=== PATIENT | female | born 1975 | race Caucasian/White ===

== ENCOUNTER 2020-08-18 00:47 | Emergency (ER) | payer MEDICAID ==
[~2020-08-18] VITALS: Ht 149.9 cm; Wt 67.7 kg
--- NOTE | 2020-08-18 01:07 | NUR ---
Patient states if son Martin, daughter or calls they can be updated on patient plan of care and condition. She is unsure of her home medications, states "I take a water pill daily, one pill three times a day and two pills at night. I also have 3 inhalers"
--- NOTE | 2020-08-18 01:10 | NUR ---
Patient states she usually wears 2.5L of oxygen but hadn't been able to as "[place] was on the streets".
[2020-08-18] MEDS ORDERED: ipratropium/albuterol 3ml nebule NEB ONE (01:30)
[2020-08-18] MEDS ORDERED: hydrALAZINE 20mg/ml inj. IV ONE ×2 (01:30→02:35)
[2020-08-18] MEDS ORDERED: dexamethasone sod phosphate 10mg/ml inj IV STA (01:30)
[2020-08-18] MEDS ORDERED: DOXY100C43 PO (01:32)
[2020-08-18] MEDS ORDERED: PRED20TA PO (01:32)
[2020-08-18] MEDS ORDERED: ALBU8HFA PO (01:32)
--- NOTE | 2020-08-18 01:45 | NUR ---
RT at bedside
[2020-08-18 02:38] LABS: BASOPHILS # (AUTO) 0.1 X10'3 (0-0.2); BASOPHILS % (AUTO) 0.8 % (0-1); EOSINOPHILS # (AUTO) 0.3 X10'3 (0-0.9); EOSINOPHILS % (AUTO) 3.3 % (0-6); HEMATOCRIT 47.4 % (35.0-45.0); LYMPHOCYTES # (AUTO) 2.4 X10'3 (1.1-4.8); LYMPHOCYTES % (AUTO) 28.5 % (21-51); MEAN CORPUSCULAR HEMOGLOBIN 28.7 PG (27.0-31.0); MEAN CORPUSCULAR HGB CONC 33.7 g/dL (33.0-36.5); MEAN CORPUSCULAR VOLUME 85.3 FL (78-98); MEAN PLATELET VOLUME 7.4 FL (7.4-10.4); MONOCYTES # (AUTO) 0.7 X10'3 (0-0.9); MONOCYTES % (AUTO) 9.1 % (2-12); NEUTROPHILS # (AUTO) 4.8 X10'3 (1.8-7.7); NEUTROPHILS % (AUTO) 58.3 % (42-75); PLATELET COUNT 314 X10'3 (140-440); RED BLOOD COUNT 5.56 X10'6 (4.20-5.60); WHITE BLOOD COUNT 8.2 X10'3 (4.5-11.0)
[2020-08-18 02:52] LABS: ALBUMIN 3.2 G/DL (3.4-5.0); ALBUMIN/GLOBULIN RATIO 0.8 (1.1-1.5); ALKALINE PHOSPHATASE 126 IU/L (46-116); ANION GAP 8 (8-16); ASPARTATE AMINO TRANSFERASE 21 U/L (10-37); BILIRUBIN,TOTAL 0.3 MG/DL (0.1-1.0); BLOOD UREA NITROGEN 12 MG/DL (7-18); CHLORIDE 104 MMOL/L (99-107); CREATININE 0.86 MG/DL (0.40-0.90); GLUCOSE 94 MG/DL (70-104); POTASSIUM 4.1 MMOL/L (3.5-5.1); SODIUM 138 MMOL/L (135-145); TOTAL CARBON DIOXIDE 26.4 MMOL/L (24-32); TOTAL PROTEIN 7.3 G/DL (6.4-8.2); eGFR 71 ML/MIN
[2020-08-18 02:59] LABS: TROPONIN I < 0.04 NG/ML (0.0-0.05)
[2020-08-18 03:00] LABS: ALANINE AMINOTRANSFERASE 24 U/L (12-78)
[2020-08-18 03:10] VITALS: BP 148/75
== END 2020-08-18 03:20 | disposition home or self-care (01) ==
LOC: ER 00:50
DX: J44.1 Chronic obstructive pulmonary disease with (acute) exacerbation (principal); J20.9 Acute bronchitis, unspecified; I11.0 Hypertensive heart disease with heart failure; I50.9 Heart failure, unspecified; F17.210 Nicotine dependence, cigarettes, uncomplicated; Z79.1 Long term (current) use of non-steroidal anti-inflammatories (NSAID); Z79.899 Other long term (current) drug therapy
CPT/HCPCS: 36415; 71046; 80053; 83880; 84484; 85025; 93005; 94640; 96374; 96375; 96376; 99285; J0360; J1100; 94760

== ENCOUNTER 2021-08-17 23:42 | Emergency (ER) | payer MEDICAID ==
[~2021-08-17] VITALS: Ht 149.9 cm; Wt 72.7 kg
[2021-08-18 02:50] LABS: BASOPHILS # (AUTO) 0.1 X10'3 (0-0.2); BASOPHILS % (AUTO) 0.4 % (0-1); EOSINOPHILS # (AUTO) 0.6 X10'3 (0-0.9); EOSINOPHILS % (AUTO) 3.2 % (0-6); HEMATOCRIT 36.1 % (35.0-45.0); HEMOGLOBIN 12.2 g/dl (12.0-16.0); LYMPHOCYTES # (AUTO) 2.7 X10'3 (1.1-4.8); LYMPHOCYTES % (AUTO) 15.3 % (21-51); MEAN CORPUSCULAR HEMOGLOBIN 30.2 PG (27.0-31.0); MEAN CORPUSCULAR HGB CONC 33.9 g/dL (33.0-36.5); MEAN CORPUSCULAR VOLUME 89.1 FL (78-98); MEAN PLATELET VOLUME 7.3 FL (7.4-10.4); MONOCYTES # (AUTO) 1.2 X10'3 (0-0.9); MONOCYTES % (AUTO) 6.8 % (2-12); NEUTROPHILS # (AUTO) 13.3 X10'3 (1.8-7.7); NEUTROPHILS % (AUTO) 74.3 % (42-75); PLATELET COUNT 351 X10'3 (140-440); RED BLOOD COUNT 4.05 X10'6 (4.20-5.60); RED CELL DISTRIBUTION WIDTH 14.4 % (11.5-14.5); WHITE BLOOD COUNT 17.9 X10'3 (4.5-11.0)
[2021-08-18 03:05] LABS: ALANINE AMINOTRANSFERASE 50 U/L (12-78); ALBUMIN 3.1 G/DL (3.4-5.0); ALBUMIN/GLOBULIN RATIO 0.9 (1.1-1.5); ALKALINE PHOSPHATASE 80 IU/L (46-116); ANION GAP 2 (8-16); ASPARTATE AMINO TRANSFERASE 17 U/L (10-37); BILIRUBIN,TOTAL 0.3 MG/DL (0.1-1.0); BLOOD UREA NITROGEN 20 MG/DL (7-18); CALCIUM 8.8 MG/DL (8.5-10.1); CHLORIDE 103 MMOL/L (99-107); GLUCOSE 114 MG/DL (70-104); LIPASE 70 U/L (73-393); POTASSIUM 3.7 MMOL/L (3.5-5.1); SODIUM 137 MMOL/L (135-145); TOTAL CARBON DIOXIDE 31.7 MMOL/L (24-32); TOTAL PROTEIN 6.7 G/DL (6.4-8.2); eGFR 77 ML/MIN
[2021-08-18] MEDS ORDERED: normal saline 1000ML IV soln IVB ONE (06:40)
[2021-08-18 06:57] LABS: BASOPHILS % (AUTO) 0.2 % (0-1); EOSINOPHILS # (AUTO) 0.5 X10'3 (0-0.9); HEMATOCRIT 36.8 % (35.0-45.0); HEMOGLOBIN 12.1 g/dl (12.0-16.0); LYMPHOCYTES # (AUTO) 2.6 X10'3 (1.1-4.8); LYMPHOCYTES % (AUTO) 14.3 % (21-51); MEAN CORPUSCULAR HEMOGLOBIN 29.1 PG (27.0-31.0); MEAN CORPUSCULAR VOLUME 88.1 FL (78-98); MEAN PLATELET VOLUME 7.4 FL (7.4-10.4); MONOCYTES # (AUTO) 1.5 X10'3 (0-0.9); MONOCYTES % (AUTO) 8.2 % (2-12); NEUTROPHILS # (AUTO) 13.6 X10'3 (1.8-7.7); NEUTROPHILS % (AUTO) 74.3 % (42-75); PLATELET COUNT 378 X10'3 (140-440); RED BLOOD COUNT 4.17 X10'6 (4.20-5.60); RED CELL DISTRIBUTION WIDTH 13.9 % (11.5-14.5); WHITE BLOOD COUNT 18.3 X10'3 (4.5-11.0)
[2021-08-18 07:00] LABS: URINE HCG NEGATIVE (NEG)
[2021-08-18 07:03] LABS: CLARITY,URINE CLEAR (Clear); COLOR,URINE YELLOW (Yellow); GLUCOSE, URINE NEGATIVE (Neg); KETONES,URINE NEGATIVE (Neg); LEUKOCYTE ESTERASE ,URINE NEGATIVE (Neg); NITRITES, URINE NEGATIVE (Neg); OCCULT BLOOD,URINE MODERATE (Neg); PH,URINE 5.5 (4.8-8.0); PROTEIN,URINE NEGATIVE (Neg); UROBILINOGEN,URINE 0.2 E.U/dL (0.2-1.0)
[2021-08-18 07:08] LABS: UA COLLECTION TYPE CLN CATCH MIDSTREAM
[2021-08-18 07:09] LABS: BACTERIA,URINE NONE SEEN /HPF (Neg); RBC,URINE 0-2 /HPF (0-2); SQUAMOUS EPITHELIAL CELL,UR NONE SEEN /LPF (FEW); WBC,URINE 0-4 /HPF (0-4)
[2021-08-18] MEDS ORDERED: iohexol 300mg/ml 100ml inj. ONE (07:20)
[2021-08-18] MEDS ORDERED: bisacodyl 10mg suppository rectal RC STA (07:40)
--- NOTE | 2021-08-18 08:48 | NUR ---
[facility] [phone]. RIDE HOME.
[2021-08-18 09:10] VITALS: BP 114/54
[2021-08-18] MEDS ORDERED: LEVO-65 PO (09:45)
[2021-08-18] MEDS ORDERED: levoFLOXACIN 750MG TABLET PO ONE (09:45)
[2021-08-18] MEDS ORDERED: magnesium hydroxide 30ml (MOM) UD suspension PO ONE (09:45)
--- NOTE | 2021-08-18 11:14 | NUR ---
Patient in no form of distress. VSS. Due meds given and tolerated. Awaiting transportation for d/c home
--- NOTE | 2021-08-18 11:56 | NUR ---
CALL TO FOLLOW UP WITH TRANSPORTATION SERVICE, NO UPDATES AT THIS TIME WITH ETA. Addendum: 08/18/21 at 1220 by [facility] patient continues to sleep on left side. no signs of distress noted.
--- NOTE | 2021-08-18 12:54 | NUR ---
[facility] reported that they would be available for transport at approx. 1530.
--- NOTE | 2021-08-18 14:48 | NUR ---
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
== END 2021-08-18 21:00 | disposition home or self-care (01) ==
LOC: ER 23:43
DX: R10.10 Upper abdominal pain, unspecified (principal); I11.0 Hypertensive heart disease with heart failure; I50.9 Heart failure, unspecified; J44.9 Chronic obstructive pulmonary disease, unspecified; F17.200 Nicotine dependence, unspecified, uncomplicated; Z79.899 Other long term (current) drug therapy
CPT/HCPCS: 36415; 74176; 80053; 81001; 81025; 83690; 85025; 93005; 96360; 96361; 99285; J3490; J7030; Q9967

== ENCOUNTER 2022-01-04 19:41 | Inpatient (IN) | payer MEDICAID ==
[~2022-01-04] VITALS: Ht 149.9 cm; Wt 91.8 kg
[2022-01-04] MEDS ORDERED: ipratropium/albuterol 3ml nebule NEB ONE (19:50)
[2022-01-04] MEDS ORDERED: CefTRIAXone 2gm/D5W 50ml BAG 50 ML IV ONE (19:50)
[2022-01-04] MEDS ORDERED: methylPREDNISolone sod succ 125mg/2ml vial IV ONE (19:55)
[2022-01-04] MEDS ORDERED: magnesium 2GM in 50ml NS 50 ML IV ONE (20:15)
[2022-01-04 20:24] LABS: BASOPHILS # (AUTO) 0.1 X10'3 (0-0.2); BASOPHILS % (AUTO) 0.7 % (0-1); EOSINOPHILS # (AUTO) 0.2 X10'3 (0-0.9); EOSINOPHILS % (AUTO) 1.5 % (0-6); HEMATOCRIT 37.2 % (35.0-45.0); HEMOGLOBIN 12.1 g/dl (12.0-16.0); LYMPHOCYTES # (AUTO) 2.3 X10'3 (1.1-4.8); LYMPHOCYTES % (AUTO) 16.4 % (21-51); MEAN CORPUSCULAR HEMOGLOBIN 29.3 PG (27.0-31.0); MEAN CORPUSCULAR HGB CONC 32.6 g/dL (33.0-36.5); MEAN CORPUSCULAR VOLUME 89.9 FL (78-98); MEAN PLATELET VOLUME 7.3 FL (7.4-10.4); MONOCYTES # (AUTO) 1.1 X10'3 (0-0.9); MONOCYTES % (AUTO) 7.5 % (2-12); NEUTROPHILS # (AUTO) 10.6 X10'3 (1.8-7.7); NEUTROPHILS % (AUTO) 73.9 % (42-75); PLATELET COUNT 494 X10'3 (140-440); RED BLOOD COUNT 4.13 X10'6 (4.20-5.60); RED CELL DISTRIBUTION WIDTH 14.5 % (11.5-14.5); WHITE BLOOD COUNT 14.3 X10'3 (4.5-11.0)
[2022-01-04 20:30] LABS: ALANINE AMINOTRANSFERASE 16 U/L (12-78); ALBUMIN 3.5 G/DL (3.4-5.0); ALBUMIN/GLOBULIN RATIO 0.9 (1.1-1.5); ALKALINE PHOSPHATASE 91 IU/L (46-116); ANION GAP 8 (8-16); ASPARTATE AMINO TRANSFERASE 9 U/L (10-37); BILIRUBIN,TOTAL 0.3 MG/DL (0.1-1.0); BLOOD UREA NITROGEN 26 MG/DL (7-18); CALCIUM 9.1 MG/DL (8.5-10.1); CHLORIDE 101 MMOL/L (99-107); CREATININE 0.93 MG/DL (0.40-0.90); GLUCOSE 103 MG/DL (70-104); POTASSIUM 3.6 MMOL/L (3.5-5.1); SODIUM 142 MMOL/L (135-145); TOTAL PROTEIN 7.6 G/DL (6.4-8.2); eGFR 65 ML/MIN
[2022-01-04] MEDS ORDERED: albuterol 2.5 MG/3 ML nebule CONTNEB PRN (20:35)
[2022-01-04] MEDS ORDERED: LORazepam 2 mg/ml vial IV ONE (21:15)
[2022-01-04] MEDS ORDERED: diphenhydrAMINE 50 mg/ml inj IV ONE (21:15)
--- NOTE | 2022-01-04 21:23 | NUR ---
PT BECAME SOB AFTER ROCEPHIN WAS STARTED, ANTIBIOTIC STOPPED. PT C/O TINGLING IN LIPS AND TONGUE. MD NOTIFIED, RESPIRATORY NOTIFIED. PT STARTED ON NRB, AND THEN BIPAP
[2022-01-04] MEDS ORDERED: epiNEPHrine 1 mg/ml inj SQ STA (21:34)
[2022-01-04 21:36] LABS: ABG HCO3 29.4 mmol/L (22.0-26.0); ABG OXYGEN SATURATION 96.4 % (94-97); ABG PCO2 (T) 68.9 mmHg (32.0-45.0); ABG PO2 (T) 95.2 mmHg (75.0-100.0); ALLEN'S TEST POSITIVE; FCOHb 1.4 % (0.0-3.9); FMetHb 0.2 % (0.0-1.5); FO2Hb 94.9 % (94-97); PATIENT TEMPERATURE 36.2; TOTAL HEMOGLOBIN 14.2 G/dl (12.0-16.0)
[2022-01-04] MEDS ORDERED: iohexol 350MG/ML 100ml bottle IV ONE (21:43)
[2022-01-04] MEDS ORDERED: normal saline 1000ml 1,000 ML IV ONE (22:00)
[2022-01-04 22:49] LABS: ABG HCO3 28.6 mmol/L (22.0-26.0); ABG OXYGEN SATURATION 96.7 % (94-97); ABG PCO2 (T) 51.4 mmHg (32.0-45.0); ABG PO2 (T) 87.5 mmHg (75.0-100.0); ALLEN'S TEST POSITIVE; FCOHb 0.9 % (0.0-3.9); FMetHb 0.2 % (0.0-1.5); FO2Hb 95.6 % (94-97); PATIENT TEMPERATURE 36.2; TOTAL HEMOGLOBIN 13.2 G/dl (12.0-16.0)
--- NOTE | 2022-01-04 23:17 | NUR ---
TIN SHEETS VERBALIZED PATIENT CAN HAVE ICE CHIPS PRIMARY RN AWARE PROVIDED ICE CHIPS
[2022-01-04] MEDS ORDERED: potassium Cl 20 mEq SR tablet PO PRN ×2 (23:55)
[2022-01-04] MEDS ORDERED: potassium Cl 40MEQ/1/2NS 520ml 520 ML IV PRN (23:55)
[2022-01-04] MEDS ORDERED: magnesium hydroxide 30ml (MOM) UD suspension PO PRN (23:55)
[2022-01-04] MEDS ORDERED: mag hydrox/Alum hydrox/simeth 30ml oral suspension PO PRN (23:55)
[2022-01-04] MEDS ORDERED: acetaminophen 325mg tablet PO PRN (23:55)
[2022-01-04] MEDS ORDERED: magnesium 4gm in 100ml NS 100 ML IV PRN (23:55)
[2022-01-04] MEDS ORDERED: albuterol 2.5 MG/3 ML nebule NEB PRN (23:55)
[2022-01-04] MEDS ORDERED: ondansetron/PF 4mg/2ml inj IV PRN (23:55)
[2022-01-05] MEDS: ipratropium/albuterol 3ml nebule NEB PRN ×3 (00:16→20:42)
[2022-01-05] MEDS: methylPREDNISolone sod succ 125mg/2ml vial IV SCH ×3 (01:00→16:48)
--- NOTE | 2022-01-05 01:07 | NUR ---
SPOKE WITH DR. WOODS IN REGARDS TO BP OF 86/57. GIVEN ORDERS FOR 500NS RAN 250ML/HR.
[2022-01-05] MEDS ORDERED: normal saline 500ml IV soln 500 ML IV ONE (01:10)
[2022-01-05 03:33] LABS: CLARITY,URINE CLEAR (Clear); COLOR,URINE YELLOW (Yellow); GLUCOSE, URINE >=1000 mg/dl (Neg); KETONES,URINE NEGATIVE (Neg); LEUKOCYTE ESTERASE ,URINE NEGATIVE (Neg); OCCULT BLOOD,URINE NEGATIVE (Neg); PH,URINE 5.5 (4.8-8.0); PROTEIN,URINE NEGATIVE (Neg); UROBILINOGEN,URINE 0.2 E.U/dL (0.2-1.0)
[2022-01-05 03:34] LABS: NITRITES, URINE NEGATIVE (Neg); UA COLLECTION TYPE NON-SPECIFIED
[2022-01-05 03:36] LABS: WBC,URINE 0-4 /HPF (0-4)
[2022-01-05 03:37] LABS: BACTERIA,URINE FEW /HPF (Neg); MUCUS STRANDS FEW /LPF (Neg); RBC,URINE 0-2 /HPF (0-2); SQUAMOUS EPITHELIAL CELL,UR FEW /LPF (FEW)
[2022-01-05 03:39] LABS: URINE AMPHETAMINE SCREEN NEGATIVE (Neg); URINE BARBITUATE SCREEN NEGATIVE (Neg); URINE BENZODIAZEPINES SCREEN NEGATIVE (Neg); URINE CANNABINOID SCREEN NEGATIVE (Neg); URINE COCAINE SCREEN NEGATIVE (Neg); URINE METHADONE SCREEN NEGATIVE (Neg); URINE OPIATE SCREEN NEGATIVE (Neg); URINE PHENCYCLIDINE SCREEN NEGATIVE (Neg)
--- NOTE | 2022-01-05 07:00 | NUR ---
report from KANWAL Arzate for continuation of care. pt is sleeping in position of comfort with bipap in place and working wnl. vs wnl. even rise and fall of chest pt appears to be in no discomfort.
[2022-01-05 07:29] LABS: BASOPHILS % (AUTO) 0.1 % (0-1); EOSINOPHILS % (AUTO) 0 % (0-6); HEMATOCRIT 38.3 % (35.0-45.0); HEMOGLOBIN 12.4 g/dl (12.0-16.0); LYMPHOCYTES # (AUTO) 0.7 X10'3 (1.1-4.8); LYMPHOCYTES % (AUTO) 5.3 % (21-51); MEAN CORPUSCULAR HGB CONC 32.4 g/dL (33.0-36.5); MEAN CORPUSCULAR VOLUME 89.5 FL (78-98); MEAN PLATELET VOLUME 7.4 FL (7.4-10.4); MONOCYTES % (AUTO) 0.4 % (2-12); NEUTROPHILS # (AUTO) 11.9 X10'3 (1.8-7.7); NEUTROPHILS % (AUTO) 94.2 % (42-75); PLATELET COUNT 445 X10'3 (140-440); RED BLOOD COUNT 4.27 X10'6 (4.20-5.60); RED CELL DISTRIBUTION WIDTH 14.5 % (11.5-14.5); WHITE BLOOD COUNT 12.6 X10'3 (4.5-11.0)
[2022-01-05 07:52] LABS: ALANINE AMINOTRANSFERASE 14 U/L (12-78); ALBUMIN 3.1 G/DL (3.4-5.0); ALBUMIN/GLOBULIN RATIO 0.8 (1.1-1.5); ALKALINE PHOSPHATASE 82 IU/L (46-116); ANION GAP 10 (8-16); ASPARTATE AMINO TRANSFERASE 10 U/L (10-37); BILIRUBIN,TOTAL 0.3 MG/DL (0.1-1.0); BLOOD UREA NITROGEN 23 MG/DL (7-18); BUN/CREATININE RATIO 23.2 (6.6-38.0); CHLORIDE 105 MMOL/L (99-107); CREATININE 0.99 MG/DL (0.40-0.90); GLUCOSE 148 MG/DL (70-104); MAGNESIUM 2.6 MG/DL (1.5-2.4); POTASSIUM 3.4 MMOL/L (3.5-5.1); SODIUM 143 MMOL/L (135-145); TOTAL CARBON DIOXIDE 27.6 MMOL/L (24-32); TOTAL PROTEIN 7.1 G/DL (6.4-8.2); eGFR 60 ML/MIN
[2022-01-05] MEDS: furosemide 40mg/4ml inj IV SCH ×2 (10:44→21:40)
[2022-01-05] MEDS: docusate sod 100mg capsule PO SCH ×2 (10:45→21:41)
[2022-01-05] MEDS: DOXYCYCLINE 100MG CAPSULE PO SCH ×2 (10:45→21:41)
[2022-01-05] MEDS: K and/or MAG REPLACEMENT MC SCH ×2 (10:57→20:00)
[2022-01-05] MEDS ORDERED: EMPA10TA PO (13:57)
[2022-01-05] MEDS ORDERED: AMLO10TA13 PO (13:57)
[2022-01-05] MEDS ORDERED: ALBU18HF2 PO (13:57)
[2022-01-05] MEDS ORDERED: BUDE0.5A3 (13:57)
[2022-01-05] MEDS ORDERED: LOSA50TA64 PO (13:57)
[2022-01-05] MEDS ORDERED: ALBU2.5V13 NEB (13:57)
[2022-01-05] MEDS ORDERED: BUME1TAB8 PO (13:57)
[2022-01-05] MEDS ORDERED: ARFO15VI20 INH (13:57)
[2022-01-05] MEDS ORDERED: CARV25TA2 PO (13:57)
--- NOTE | 2022-01-05 18:18 | NUR ---
REPORT TO KANWAL RAMHAN FOR CONTINUATION OF CARE.
[2022-01-05] MEDS ORDERED: enoxaparin 40mg/0.4ml syringe SQ SCH (20:00)
[2022-01-05 23:39] VITALS: BP 118/58
--- NOTE | 2022-01-05 23:45 | NUR ---
Received pt from ER in stable condition.Has chronic sounding cough non productive previous smoker. Pt. is on o2 4l NC. Pt. has a peripheral IV /Sl in left hand. Purewick with small amt yellow clear urine. BIPAP at bedside per RT. Plan for BIPAP overnight per pt. request.
[2022-01-06] MEDS: ipratropium/albuterol 3ml nebule NEB PRN ×2 (01:35→09:07)
[2022-01-06 03:09] VITALS: BP 125/64
[2022-01-06] MEDS: methylPREDNISolone sod succ 125mg/2ml vial IV SCH (04:40)
[2022-01-06 06:10] LABS: BASOPHILS % (AUTO) 0 % (0-1); EOSINOPHILS % (AUTO) 0 % (0-6); HEMATOCRIT 35.4 % (35.0-45.0); HEMOGLOBIN 11.8 g/dl (12.0-16.0); LYMPHOCYTES # (AUTO) 0.8 X10'3 (1.1-4.8); LYMPHOCYTES % (AUTO) 3.5 % (21-51); MEAN CORPUSCULAR HEMOGLOBIN 29.6 PG (27.0-31.0); MEAN CORPUSCULAR HGB CONC 33.3 g/dL (33.0-36.5); MEAN CORPUSCULAR VOLUME 89.1 FL (78-98); MEAN PLATELET VOLUME 7.3 FL (7.4-10.4); MONOCYTES # (AUTO) 0.3 X10'3 (0-0.9); MONOCYTES % (AUTO) 1.3 % (2-12); NEUTROPHILS # (AUTO) 22.5 X10'3 (1.8-7.7); NEUTROPHILS % (AUTO) 95.2 % (42-75); PLATELET COUNT 448 X10'3 (140-440); RED BLOOD COUNT 3.97 X10'6 (4.20-5.60); RED CELL DISTRIBUTION WIDTH 14.3 % (11.5-14.5); WHITE BLOOD COUNT 23.7 X10'3 (4.5-11.0)
--- NOTE | 2022-01-06 06:51 | NUR ---
Patient in room PCU 3024. I have received report from KANWAL Hernandez and had the opportunity to ask questions and assume patient care.
[2022-01-06 07:29] LABS: ALANINE AMINOTRANSFERASE 14 U/L (12-78); ALBUMIN 3.2 G/DL (3.4-5.0); ALBUMIN/GLOBULIN RATIO 0.8 (1.1-1.5); ALKALINE PHOSPHATASE 96 IU/L (46-116); ANION GAP 13 (8-16); ASPARTATE AMINO TRANSFERASE 9 U/L (10-37); BILIRUBIN,TOTAL 0.1 MG/DL (0.1-1.0); BLOOD UREA NITROGEN 38 MG/DL (7-18); BUN/CREATININE RATIO 35.8 (6.6-38.0); CALCIUM 9.5 MG/DL (8.5-10.1); CHLORIDE 100 MMOL/L (99-107); CREATININE 1.06 MG/DL (0.40-0.90); GLUCOSE 203 MG/DL (70-104); MAGNESIUM 2.3 MG/DL (1.5-2.4); POTASSIUM 3.2 MMOL/L (3.5-5.1); SODIUM 142 MMOL/L (135-145); TOTAL CARBON DIOXIDE 28.6 MMOL/L (24-32); TOTAL PROTEIN 7.3 G/DL (6.4-8.2); eGFR 56 ML/MIN
[2022-01-06] MEDS: K and/or MAG REPLACEMENT MC SCH (08:00)
[2022-01-06] MEDS: furosemide 40mg/4ml inj IV SCH (08:08)
[2022-01-06] MEDS: docusate sod 100mg capsule PO SCH (08:08)
[2022-01-06] MEDS: DOXYCYCLINE 100MG CAPSULE PO SCH (08:08)
[2022-01-06] MEDS ORDERED: DOXY-224 PO (09:53)
[2022-01-06] MEDS ORDERED: PRED10TA23 PO (09:53)
[2022-01-06] MEDS ORDERED: methylPREDNISolone sod succ 125mg/2ml vial IV SCH (12:00)
--- NOTE | 2022-01-06 12:12 | NUR ---
Patient was discharged at 1200 with instructions and verbalizing understanding of instructions, in wheelchair accompanied by nursing staff going home via private vehicle. All lines and tubes including PIV with cannula intact and tele monitor have been removed. Education has been provided at bedside and all questions have been answered. Patient will call to make her own appointment with her PCP in 1 week. Patient is stable and appropriate for discharge.
[2022-02-03] MEDS ORDERED: epiNEPHrine 0.1mg/ml 10ml syringe ONE (05:00)
== END 2022-01-06 12:00 | disposition home or self-care (01) | DRG 133 ==
LOC: ER 19:41 → ED HOLD 01-05 00:03 → PCU 3S 01-05 23:27
PROVIDERS: ADMIT Family Medicine; ATTEND Internal Medicine
PROC: B32T1ZZ Computerized Tomography (CT Scan) of Left Pulmonary Artery using Low Osmolar Contrast (ICD-10-PCS; 2022-01-04)
PROC: B3201ZZ Computerized Tomography (CT Scan) of Thoracic Aorta using Low Osmolar Contrast (ICD-10-PCS; 2022-01-04)
PROC: B32S1ZZ Computerized Tomography (CT Scan) of Right Pulmonary Artery using Low Osmolar Contrast (ICD-10-PCS; 2022-01-04)
PROC: 5A09357 Assistance with Respiratory Ventilation, Less than 24 Consecutive Hours, Continuous Positive Airway Pressure (ICD-10-PCS; principal; 2022-01-05)
PROC: 5A09357 Assistance with Respiratory Ventilation, Less than 24 Consecutive Hours, Continuous Positive Airway Pressure (ICD-10-PCS; 2022-01-06)
DX: J96.21 Acute and chronic respiratory failure with hypoxia (principal); J18.9 Pneumonia, unspecified organism; J44.0 Chronic obstructive pulmonary disease with (acute) lower respiratory infection; I11.0 Hypertensive heart disease with heart failure; J44.1 Chronic obstructive pulmonary disease with (acute) exacerbation; J45.901 Unspecified asthma with (acute) exacerbation; I50.9 Heart failure, unspecified; Z99.81 Dependence on supplemental oxygen; J96.22 Acute and chronic respiratory failure with hypercapnia; T78.2XXA Anaphylactic shock, unspecified, initial encounter; F17.210 Nicotine dependence, cigarettes, uncomplicated; E66.01 Morbid (severe) obesity due to excess calories; T36.1X5A Adverse effect of cephalosporins and other beta-lactam antibiotics, initial encounter; I25.10 Atherosclerotic heart disease of native coronary artery without angina pectoris; Z79.899 Other long term (current) drug therapy; Z82.49 Family history of ischemic heart disease and other diseases of the circulatory system; Z95.1 Presence of aortocoronary bypass graft; Z68.41 Body mass index [BMI] 40.0-44.9, adult; Z88.8 Allergy status to other drugs, medicaments and biological substances; Z90.49 Acquired absence of other specified parts of digestive tract
CPT/HCPCS: 36415; 36600; 71045; 71275; 80053; 80305; 81001; 82803; 83605; 83735; 83880; 84145; 84484; 85018; 85025; 87040; 93005; 93306; 94640; 94660; 94760; 96361; 96365; 96372; 96375; 97161; 97530; 99291; 99292; A7015; G0378; J0171; J0696; J1200; J1650; J1940; J2060; J2930; J3475; J3490; J7030; J7040; Q9967

== ENCOUNTER 2022-01-21 04:14 | Emergency (ER) | payer MEDICAID ==
[~2022-01-21] VITALS: Ht 149.9 cm; Wt 85.0 kg
[~2022-01-21 04:14] MED LIST: ALBU18HF2 PO; ALBU2.5V13 NEB; ARFO15VI20 INH; BUDE0.5A3; BUME1TAB8 PO; DOXY-224 PO; EMPA10TA PO; PRED10TA23 PO
[2022-01-21] MEDS ORDERED: predniSONE 20 mg tablet PO ONE (04:45)
[2022-01-21] MEDS ORDERED: albuterol 2.5 MG/3 ML nebule NEB ONE (04:55)
[2022-01-21] MEDS ORDERED: ipratropium/albuterol 3ml nebule NEB ONE (04:55)
[2022-01-21 05:25] VITALS: BP 166/86
[2022-01-21 05:46] LABS: ABG BASE EXCESS 9.3 mmol/L (-2.0-2.0); ABG HCO3 34.9 mmol/L (22.0-26.0); ABG OXYGEN SATURATION 97.6 % (94-97); ABG PCO2 (T) 50.6 mmHg (32.0-45.0); ABG PO2 (T) 94.9 mmHg (75.0-100.0); ALLEN'S TEST POSITIVE; FCOHb 2.6 % (0.0-3.9); FLOW 3 L/min; FMetHb 0.2 % (0.0-1.5); FO2Hb 94.9 % (94-97); PATIENT TEMPERATURE 36.9; TOTAL HEMOGLOBIN 14.1 G/dl (12.0-16.0)
[2022-01-21 05:53] LABS: BASOPHILS # (AUTO) 0.1 X10'3 (0-0.2); BASOPHILS % (AUTO) 0.3 % (0-1); EOSINOPHILS # (AUTO) 0.2 X10'3 (0-0.9); EOSINOPHILS % (AUTO) 0.9 % (0-6); HEMATOCRIT 38.8 % (35.0-45.0); HEMOGLOBIN 13.2 g/dl (12.0-16.0); LYMPHOCYTES # (AUTO) 4.2 X10'3 (1.1-4.8); LYMPHOCYTES % (AUTO) 19.5 % (21-51); MEAN CORPUSCULAR HEMOGLOBIN 30.4 PG (27.0-31.0); MEAN CORPUSCULAR HGB CONC 33.9 g/dL (33.0-36.5); MEAN CORPUSCULAR VOLUME 89.5 FL (78-98); MEAN PLATELET VOLUME 7.1 FL (7.4-10.4); MONOCYTES # (AUTO) 1.4 X10'3 (0-0.9); MONOCYTES % (AUTO) 6.5 % (2-12); NEUTROPHILS # (AUTO) 15.7 X10'3 (1.8-7.7); NEUTROPHILS % (AUTO) 72.8 % (42-75); PLATELET COUNT 461 X10'3 (140-440); RED BLOOD COUNT 4.34 X10'6 (4.20-5.60); WHITE BLOOD COUNT 21.5 X10'3 (4.5-11.0)
[2022-01-21] MEDS ORDERED: azithromycin/NS 500mg/250ml 250 ML IV ONE (06:00)
[2022-01-21 06:06] LABS: ALANINE AMINOTRANSFERASE 22 U/L (12-78); ALBUMIN 3.5 G/DL (3.4-5.0); ALBUMIN/GLOBULIN RATIO 0.9 (1.1-1.5); ALKALINE PHOSPHATASE 96 IU/L (46-116); ANION GAP 4 (8-16); ASPARTATE AMINO TRANSFERASE 7 U/L (10-37); BILIRUBIN,TOTAL 0.2 MG/DL (0.1-1.0); BLOOD UREA NITROGEN 26 MG/DL (7-18); BUN/CREATININE RATIO 29.5 (6.6-38.0); CALCIUM 9.5 MG/DL (8.5-10.1); CHLORIDE 93 MMOL/L (99-107); CREATININE 0.88 MG/DL (0.40-0.90); GLUCOSE 122 MG/DL (70-104); POTASSIUM 3.4 MMOL/L (3.5-5.1); SODIUM 134 MMOL/L (135-145); TOTAL CARBON DIOXIDE 36.7 MMOL/L (24-32); TOTAL PROTEIN 7.6 G/DL (6.4-8.2); eGFR 69 ML/MIN
[2022-01-21] MEDS ORDERED: bisacodyl 5mg tablet.DR PO ONE (07:10)
[2022-01-21] MEDS ORDERED: normal saline 1000ml 1,000 ML IV ONE (07:10)
[2022-01-21] MEDS ORDERED: BISA-78 PO (08:32)
[2022-01-21] MEDS ORDERED: MAGN296S68 PO (08:32)
[2022-01-21] MEDS ORDERED: AZIT-83 PO (08:33)
[2022-01-21] MEDS ORDERED: ALB0.5UD IH (08:41)
[2022-01-21] MEDS ORDERED: bacitracin 15gm ointment TP ONE (10:02)
== END 2022-01-21 17:10 | disposition home or self-care (01) ==
LOC: ER 04:14
DX: J44.9 Chronic obstructive pulmonary disease, unspecified (principal); Z20.822 Contact with and (suspected) exposure to COVID-19; I11.0 Hypertensive heart disease with heart failure; I50.9 Heart failure, unspecified; Z88.8 Allergy status to other drugs, medicaments and biological substances; Z79.899 Other long term (current) drug therapy
CPT/HCPCS: 36415; 36600; 71046; 80053; 82803; 83605; 83880; 84145; 85018; 85025; 87040; 87502; 87503; 87635; 93005; 94640; 96365; 96366; 99285; C9803; J0456; J7030; J7512; 94760; A6446; A6449